=== PATIENT | male | born 1985 | race Caucasian/White ===

== ENCOUNTER 2021-12-27 08:07 | Emergency (ER) | payer SELFPAY ==
[~2021-12-27] VITALS: Ht 182.9 cm; Wt 109.0 kg
[2021-12-27 08:19] VITALS: BP 152/106
--- NOTE | 2021-12-27 08:40 | PHYS DOC ---
Past History Past Surgical History: Appendectomy Alcohol Use: None General Adult EDM: Chief Complaint: FOOT INJURY PAIN HPI: HPI: 36-year-old male presents with left foot pain. The patient stepped on a board with a nail sticking out couple weeks ago. He had a puncture los on the lateral plantar surface of the foot. It has not been bothering that much until recently. He also has a very tender big toe for the last few days. He does not know why this is happening. No history of gout. Patient denies fever or chills. He has no other injuries at this time. Review of Systems: Review of Systems: Constitutional: Denies fever or chills Eyes: Denies change in visual acuity HENT: Denies nasal congestion or sore throat Respiratory: Denies cough or shortness of breath Cardiovascular: Denies chest pain or edema GI: Denies abdominal pain, nausea, vomiting, bloody stools or diarrhea : Denies dysuria Musculoskeletal: Left foot pain Integument: Denies rash Neurologic: Denies headache, focal weakness or sensory changes Endocrine: Denies polyuria or polydipsia Lymphatic: Denies swollen glands Psychiatric: Denies depression or anxiety Allergies: Allergies: Allergies Coded Allergies Type Severity Reaction Last Updated Verified No Known Drug Allergies 12/27/21 No Physical Exam: PE: Constitutional: Well developed, well nourished, no acute distress, non-toxic appearance. [] Cardiovascular: Heart rate regular rhythm, no murmur [] Lungs & Thorax: Bilateral breath sounds clear to auscultation [] Abdomen: Bowel sounds normal, soft, no tenderness, no masses, no pulsatile masses. [] Skin: Old penetrating wound of the left plantar foot, no obvious erythema or warmth, very dry skin, tenderness to palpation [] Back: No tenderness, no CVA tenderness. [] Extremities: No tenderness, no cyanosis, no clubbing, ROM intact, no edema. [] Neurologic: Alert and oriented X 3, normal motor function, normal sensory function, no focal deficits noted. [] Psychologic: Affect normal, judgement normal, mood normal. [] Current Patient Data: Vital Signs: Vital Signs Date Time Temp Pulse Resp B/P (MAP) Pulse Ox O2 Delivery O2 Flow Rate FiO2 12/27/21 08:19 96.3 100 18 152/106 (121) 100 Room Air EKG: EKG: [] Radiology/Procedures: Radiology/Procedures: [] Impressions: EXAM: Right foot, 3 views. HISTORY: Stepped on nail. Foreign body. COMPARISON: None. FINDINGS: 3 views of the right foot are obtained. There is no fracture, dis location or subluxation. There is no radiodense foreign body. There is an incidental accessory navicular. IMPRESSION: No acute osseous finding or radiodense foreign body. Electronically signed by: Natasha Eller MD (12/27/2021 8:50 AM) [id number] DICTATED AND SIGNED BY: NATASHA ELLER MD DATE: 12/27/21 0849 CC: JULIUS RÍOS DO; PCP,NO ~MTH0 0 Heart Score: C/O Chest Pain: N/A Risk Factors: Risk Factors: DM, Current or recent (<one month) smoker, HTN, HLP, family history of CAD, obesity. Risk Scores: Score 0 - 3: 2.5% MACE over next 6 weeks - Discharge Home Score 4 - 6: 20.3% MACE over next 6 weeks - Admit for Clinical Observation Score 7 - 10: 72.7% MACE over next 6 weeks - Early Invasive Strategies Course & Med Decision Making: Course & Med Decision Making Pertinent Labs and Imaging studies reviewed. (See chart for details) The patient's foot x-ray is negative for acute findings. His exam does not show infection. The skin on his feet is overly dry. He is wearing sandals in the winter. The toe tenderness could be gout but it does not seem hot or inflamed. I have advised 6 mg ibuprofen 3 times a day for at least the next 5 days. He will follow up with his primary care physician as needed. He is stable for discharge at this time. [] Dragon Disclaimer: [employer] Disclaimer: This electronic medical record was generated, in whole or in part, using a voice recognition dictation system. Departure Departure: Impression: Primary Impression: Left foot pain Additional Impression: Pain of left great toe Disposition: HOME / SELF CARE / HOMELESS Condition: STABLE Referrals: PCP,NO (PCP) Patient Instructions: Foot Contusion, [id number] Additional Instructions: Take 600 mg of ibuprofen 3 times a day for the next 5 days. This will help with swelling and may improve the pain in her great toe. Follow-up with your primary care physician as needed. JULIUS RÍOS DO Dec 27, 2021 08:40
--- NOTE | 2021-12-27 08:52 | RAD ---
EXAM: Right foot, 3 views. HISTORY: Stepped on nail. Foreign body. COMPARISON: None. FINDINGS: 3 views of the right foot are obtained. There is no fracture, dislocation or subluxation. T here is no radiodense foreign body. There is an incidental accessory navicular. IMPRESSION: No acute osseous finding or radiodense foreign body. Electronically signed by: Natasha Eller MD (12/27/2021 8:50 AM) [id number]
== END 2021-12-27 09:15 | disposition home or self-care (01) ==
LOC: ER 08:07
DX: M79.672 Pain in left foot (principal); M79.675 Pain in left toe(s)
CPT/HCPCS: 73630; 99283